=== PATIENT | female | born 1955 | race Caucasian/White ===

== ENCOUNTER → 2019-04-05 | Outpatient (CLI) | payer MEDICARE, OTHER ==
--- NOTE | 2019-04-05 11:46 | US ---
EXAMINATION TYPE: US carotid duplex BILAT DATE OF EXAM: 04/05/2019 COMPARISON: NONE CLINICAL HISTORY: G93.2 Benign intracranial hypertension, Occlusion. EXAM MEASUREMENTS: RIGHT: Peak Systolic Velocity (PSV) cm/sec ----- Right CCA: 88.6 ----- Right ICA: 90.8 ----- Right ECA: 94.1 ICA/CCA ratio: 1.0 RIGHT: End Diastole cm/sec ----- Right CCA: 17.1 ----- Right ICA: 35.8 ----- Right ECA: 11.7 LEFT: Peak Systolic Velocity (PSV) cm/sec ----- Left CCA: 98.6 ----- Left ICA: 108.2 ----- Left ECA: 67.7 ICA/CCA ratio: 1.1 LEFT: End Diastole cm/sec ----- Left CCA: 33.9 ----- Left ICA: 34.4 ----- Left ECA: 10.1 VERTEBRALS (direction of flow): Right Vertebral: Antegrade Left Vertebral: Antegrade Rhythm: Normal No significant stenosis seen. Mild bilateral plaque noted. No elevated velocities. IMPRESSION: Mild degree of grayscale atheromatous plaquing with no sonographically evident hemodynam ically significant stenosis within either visualized carotid arterial system. Criteria for Assigning % of Stenosis / Diameter reduction (Estimation based on the indirect measurements of the internal carotid artery velocities (ICA PSV). 1. Normal (no stenosis)=ICA PSV < 125 cm/s: ratio < 2.0: ICA EDV<40 cm/s. 2. Less than 50% stenosis=ICA PSV < 125 cm/s: ratio < 2.0: ICA EDV<40 cm/s. 3. 50 to 69% stenosis=ICA PSV of 125 to 230 cm/s: ration 2.0 ? 4.0: ICA EDV 40-100 cm/s. 4. Greater than 70% stenosis to near occlusion= ICA PSV > 230 cm/s: ratio > 4.0: ICA EDV > 100 cm/s. 5. Near occlusion= ICA PSV velocities may be low or undetectable: variable ratio and ICA EDV. 6. Total occlusion=unable to detect flow.
--- NOTE | 2019-04-05 11:57 | US ---
EXAMINATION TYPE: US renal artery duplex complet DATE OF EXAM: 04/05/2019 COMPARISON: NONE CLINICAL HISTORY: G93.2 Benign intracranial hypertension, Occlusion. Recent onset of uncontrolled HTN . MEASUREMENTS: RENAL SIZE: Rt Kidney: 10.1 x 4.1 x 5.2 cm Lt Kidney: 11.2 x 4.5 x 4.3 cm RESISTANCE INDEX Right: 0.60 Left: 0.59 RA/AO RATIO (< 3.5 ) Right: 1.6 Left: 1.4 RA VELOCITY ( < 180 cm/s) Right: 172 Left: 156 Renals and aorta unremarkable. No evidence for renal artery stenosis. Good upstroke on segmentals at renal hilum. Low resistive waveforms noted throughout. IMPRESSION: No sonographic evidence of renal arterial stenosis.
== END | disposition home or self-care (01) ==
LOC: RADUSWWP 10:17
PROVIDERS: ATTEND Psychiatry & Neurology Neurology
DX: I65.23 Occlusion and stenosis of bilateral carotid arteries (principal); G93.2 Benign intracranial hypertension
CPT/HCPCS: 93880; 93975